=== PATIENT | female | born 1940 | race Caucasian/White ===

== ENCOUNTER 2019-04-04 11:43 | Inpatient (IN) ==
[2019-04-04] MEDS ORDERED: ASPIRIN PO ONE (12:00)
[2019-04-04] MEDS ORDERED: ASPIRIN PR ONE (12:00)
--- NOTE | 2019-04-04 12:14 | EKG Report ---
Test Performed on : 04/04/2019 11:54:31 AM Test Reason : SOB Blood Pressure : / mmHG Vent. Rate : 064 BPM Atrial Rate : 064 BPM P-R Int : 200 ms QRS Dur : 088 ms QT Int : 400 ms P-R-T Axes : 052 -03 026 degrees QTc Int : 412 ms Sinus rhythm. with occasional premature ventricular complexes. T wave abnormality, consider anterolateral ischemia Abnormal ECG When compared with ECG of 22-NOV-2014 16:04, premature ventricular complexes. are now present Minimal criteria for Anterior infarct are no longer present Nonspecific T wave abnormality now evident in Inferior leads T wave inversion now evident in Lateral leads Unconfirmed Result
[2019-04-04 12:18] LABS: BASO# 0.03 X1000 (0.0-0.2); BASO% 0.5 % (0.0-0.8); EOS# 0.13 X1000 (0.0-0.7); EOS% 2.1 % (0.0-10.0); HEMATOCRIT 42.9 % (37.0-47.0); HEMOGLOBIN 14.5 g/dL (12.0-16.0); LYMPH# 1.57 X1000 (1.2-3.4); LYMPH% 25.7 % (20.5-51.1); MCH 30.8 PG (27-31); MCHC 33.8 g/dL (33-37); MCV 91.1 FL (81-99); MONO# 0.55 X1000 (0.11-0.59); MPV 10.5 FL (7.4-10.4); NEUT# 3.83 X1000 (1.4-6.5); NEUT% 62.7 % (42.2-75.2); PLT 191 X1000 (130-400); RBC 4.71 XMIL (4.2-5.4); RDW 12.9 % (11.5-14.5); WBC 6.11 X1000 (4.8-10.8)
--- NOTE | 2019-04-04 12:20 | Diag Imaging Result Doc PS360 ---
EXAM: CHEST-2 VIEWS 04/04/2019 HISTORY: SOB TECHNIQUE: AP and lateral chest COMMENT: There is no evidence of acute cardiac or pulmonary disease. Compared to 01/22/2017 there has been no significant change. IMPRESSION: No acute disease. Electronically signed by Singh Lara 04/04/2019 12:18 PM
[2019-04-04 12:28] LABS: INR 0.94; PROTIME 12.7 Seconds (11.0-16.0); PTT 29.1 Seconds (22.3-41.8)
[2019-04-04 12:34] LABS: ALB/GLOB RATIO 1.5; ALBUMIN 4.2 g/dL (3.5-5.0); CALCIUM 9.9 mg/dL (8.8-10.2); POTASSIUM 4.1 mmol/L (3.5-5.1); TOTAL BILIRUBIN 0.9 mg/dL (0.20-1.00)
[2019-04-04 13:29] LABS: ALLEN TEST YES; BE 4.2 mmoll (-3.0-3.0); BLOOD TYPE ARTERIAL; HCO3-(ACT) 28.1 mmoll (20.0-26.0); METHB 1.2 % (0.0-1.5); O2(CT) 19.9 mL/dL (15.0-23.0); O2HB 93.3 % (95.0-99.0); PCO2(98.6) 44 mmHg (35-45); PO2(98.6) 68 mmHg (60-100); SAMPLE BLOOD; SAO2 95.8 % (95.0-100.0); THB 15.2 g/dL (11.5-17.4); pH(98.6) 7.43 (7.35-7.45)
[2019-04-04 13:31] LABS: MODALITY CANNULA
[2019-04-04] MEDS ORDERED: G.I. COCKTAIL PO ONE (15:35)
--- NOTE | 2019-04-04 15:37 | PROVIDER DOCUMENTATION ---
This chart was entered by Estefania Proctor Scribe, acting as scribe for Jasbir Londono MD. HPI-Respiratory General - General Chief Complaint: Shortness of Breath Stated Complaint: CHEST PAIN Time Seen by Provider: 04/04/19 12:14 Source: patient Allergies/Adverse Reactions: Patient Allergies Allergy/AdvReac Type Severity Reaction Status Date / Time cephalexin monohydrate * Allergy RASH Verified 04/04/19 14:04 [From Keflex] Iodinated Contrast Media Allergy SWELLING Verified 04/04/19 14:04 [IV Dye] nitrofurantoin Allergy RASH Verified 04/04/19 14:04 macrocrystalline * [From Macrodantin] nizatidine [From Axid] Allergy RASH Verified 04/04/19 14:04 Sulfa (Sulfonamide Allergy RASH Verified 04/04/19 14:04 Antibiotics) Home Medications: Home Medication List Medication Instructions Recorded Confirmed Last Taken Type Hydrochlorothiazide 25 mg PO DAILY 12/12/14 04/04/19 1 Day Ago History ~12/11/14 Potassium Chloride [Klor-Con 10] 10 meq PO DAILY 12/12/14 04/04/19 1 Day Ago History ~12/11/14 Diclofenac Na D.r. [Voltaren] 1 tab PO Q8H PRN 04/04/19 04/04/19 Unknown History Levothyroxine [Synthroid] 1 tab PO DAILY 04/04/19 04/04/19 Unknown History Metoprolol Succinate E.r. [Toprol 1 tab PO DAILY 04/04/19 04/04/19 Unknown History Xl] Pantoprazole [Protonix] 1 tab PO DAILY 04/04/19 04/04/19 Unknown History - History of Present Illness-Resp Nature of Presenting Problem: 78yof presents to ED cc SOB, low o2, dizziness and fatigue that is increased with movement for last 2-3 months swelling of hands and feet, HTN and abnormal EKG at PCP this morning. 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 Pt has hx of HTN. Pt o2 was 87% on room air in ED. Severity in ED: reports: moderate Onset/Duration: reports: other (2-3 months) Timing: reports: still present Exposure: reports: unknown cause Cough Quality/Degree: reports: no cough Current Respiratory Medication Therapy: Initiated see nurses note Modifying Factors: worse with: exertion Associated Symptoms: reports: shortness of breath, short of breath Similar Symptoms Previously?: Yes Recently seen or treated by another doctor?: Yes (saw PCP this morning) Review of Systems - Adult - REVIEW OF SYSTEMS - ADULT Constitutional: reports: see HPI, nanoque. denies: chills, fever Eyes: reports: no symptoms reported Ears, Nose, Mouth & Throat: reports: no symptoms reported Cardiovascular: reports: see HPI, other (elevated b/p). denies: chest pain, palpitations Respiratory: reports: see HPI, dyspnea on exertion, shortness of breath, other (low o2). denies: cough Gastrointestinal: reports: no symptoms reported Genitourinary: reports: no symptoms reported Musculoskeletal: reports: no symptoms reported Integumentary: reports: see HPI, other (swelling to hands and feet, bilateral) Neurological: reports: see HPI, dizziness/vertigo Psychiatric: reports: no symptoms reported Endocrine: reports: no symptoms reported Hematologic/Lymphatic: reports: no symptoms reported Allergic/Immunologic: reports: no symptoms reported All Other Systems: Reviewed and Negative Past History - Adult - PAST MEDICAL HISTORY-ADULT Review of Records: reports: Nursing Assessment Review, Medications Reviewed, Social history reviewed & non-contributory. Major Childhood Illnesses: reports: denies history Cardiovascular: reports: denies history Respiratory: reports: denies history Gastrointestinal: reports: denies history Obstetrical/Gynecological: reports: denies history Genitourinary: reports: denies history Musculoskeletal: reports: denies history Neurological: reports: denies history Endocrine/Immune: reports: denies history Other Conditions: reports: denies history - PRIOR SURGERIES/PROCEDURES Surgical/Procedure History: reports: appendectomy, cholecystectomy, hysterectomy , other (thyroid) - IMMUNIZATION STATUS Childhood Immunizations: See Nurse Assessment Flu Vaccine: See Nurse Assessment - FAMILY HISTORY Family History: reviewed, not pertinent - SOCIAL HISTORY Smoking: denies Physical Exam-General - PHYSICAL EXAM-ADULT Initial Vital Signs Reviewed: Yes - CONSTITUTIONAL General Appearance: appears well, alert, no apparent distress. negative: anxious, combative - EYES Eyes: PERRL/EOMI, pink conjunctivae. negative: photophobia - HEAD, EARS, NOSE, MOUTH & THROAT HENMT: normocephalic/atraumatic, moist mucous membranes. negative: angioedema - NECK Neck: non-tender, full range of motion, supple, normal inspection. negative: C- spine tenderness - RESPIRATORY Respiratory: chest non-tender, lungs clear, normal breath sounds, no pleuratic chest pain, no respiratory distress, no accessory muscle use. negative: crackles, rales, rhonchi, stridor, wheezing - CARDIOVASCULAR Cardiovascular: normal peripheral pulses, regular rate, rhythm, no edema, no gallop, no JVD, no murmur. negative: bradycardia, tachycardia - GASTROINTESTINAL (ABDOMEN) Abdominal Exam: normal bowel sounds, non tender, soft. negative: rigid, rebound - LYMPHATIC Lymphatic: no adenopathy - MUSCULOSKELETAL Back Exam: normal inspection, no CVA tenderness, no vertebral tenderness Extremity: normal range of motion, non-tender, normal gait, normal inspection, no calf tenderness, normal capillary refill, swelling (+1 bilateral lower). negative: deformity - SKIN Integumentary: normal color, normal turgor, warm/dry. 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 negative: facial droop - PSYCHIATRIC Psych/Mental Status: normal mood/affect, oriented x 3. negative: anxious, disheveled - HEART Score HEART Score: History: Slightly Suspicious HEART Score: ECG: Non-Specific Repolarization Disturbance/LBBB/PM HEART Score: Age: > or = 65 Years HEART Score: Risk Factors for Atherosclerotic Disease: 1 or 2 Risk Factors HEART Score: Troponin: < or = Normal Limit Total HEART Score:: 4 Progress - PLAN OF CARE/RESULTS Progress/Plan/Lab Results: Vital Signs - 8 hr 04/04/19 11:51 04/04/19 12:59 04/04/19 13:29 Temperature 97.7 F Pulse Rate 64 58 L Respiratory Rate 18 16 13 Blood Pressure 175/85 139/69 139/73 O2 Sat by Pulse Oximetry 87 L 95 95 04/04/19 14:07 Temperature Pulse Rate 58 L Respiratory Rate 19 Blood Pressure 147/80 O2 Sat by Pulse Oximetry 96 Laboratory Results - last 24 hr 04/04/19 04/04/19 04/04/19 12:06 12:06 12:06 WBC 6.11 RBC 4.71 Hgb 14.5 Hct 42.9 MCV 91.1 MCH 30.8 MCHC 33.8 RDW Std Deviation 12.9 Plt Count 191 MPV 10.5 H Neut % (Auto) 62.7 Lymph % (Auto) 25.7 [place] % (Auto) 9.0 Eos % (Auto) 2.1 Baso % (Auto) 0.5 Neut # (Auto) 3.83 Lymph # (Auto) 1.57 [place] # (Auto) 0.55 Eos # (Auto) 0.13 Baso # (Auto) 0.03 PT INR PTT (Actin FS) D-Dimer, Quantitative Specimen Type Sample Site pH pCO2 pO2 HCO3 Base Excess Oxyhemoglobin ABG O2 Sat (Calculated) ABG O2 Saturation ABG Carboxyhemoglobin ABG Methemoglobin Justin Test A-a O2 Difference Total Hemoglobin Lactate Liter Flow Blood Gas Modality FiO2 % Sodium 146 H Potassium 4.1 Chloride 104 Carbon Dioxide 29 Anion Gap 13 BUN 17 Creatinine 1.0 H Estimated GFR/1.73 m2 53 BUN/Creatinine Ratio 17 Glucose 102 Calculated Osmolality 292 Calcium 9.9 Total Bilirubin 0.90 AST 18 ALT 15 Alkaline Phosphatase 85 Creatine Kinase 123 Troponin T High Sens Tkc-O-Abdwyjhtvuv Pept 106 Total Protein 7.0 Albumin 4.2 Globulin 2.8 Albumin/Globulin Ratio 1.5 04/04/19 04/04/19 04/04/19 12:06 12:06 12:06 WBC RBC Hgb Hct MCV MCH MCHC RDW Std Deviation Plt Count MPV Neut % (Auto) Lymph % (Auto) [place] % (Auto) Eos % (Auto) Baso % (Auto) Neut # (Auto) Lymph # (Auto) [place] # (Auto) Eos # (Auto) Baso # (Auto) PT 12.7 INR 0.94 PTT (Actin FS) 29.1 D-Dimer, Quantitative 0.52 Specimen Type Sample Site pH pCO2 pO2 HCO3 Base Excess Oxyhemoglobin ABG O2 Sat (Calculated) ABG O2 Saturation ABG Carboxyhemoglobin ABG Methemoglobin Justin Test A-a O2 Difference Total Hemoglobin Lactate Liter Flow Blood Gas Modality FiO2 % Sodium Potassium Chloride Carbon Dioxide Anion Gap BUN Creatinine Estimated GFR/1.73 m2 BUN/Creatinine Ratio Glucose Calculated Osmolality Calcium Total Bilirubin AST ALT Alkaline Phosphatase Creatine Kinase Troponin T High Sens 10 Hen-C-Xztsawqchnh Pept Total Protein Albumin Globulin Albumin/Globulin Ratio 04/04/19 13:21 WBC RBC Hgb Hct MCV MCH MCHC RDW Std Deviation Plt Count MPV Neut % (Auto) Lymph % (Auto) [place] % (Auto) Eos % (Auto) Baso % (Auto) Neut # (Auto) Lymph # (Auto) [place] # (Auto) Eos # (Auto) Baso # (Auto) PT INR PTT (Actin FS) D-Dimer, Quantitative Specimen Type ARTERIAL Sample Site R RADIAL pH 7.43 pCO2 44 pO2 68 HCO3 28.1 H Base Excess 4.2 H Oxyhemoglobin 93.3 L ABG O2 Sat (Calculated) 19.9 ABG O2 Saturation 95.8 ABG Carboxyhemoglobin 1.40 ABG Methemoglobin 1.2 Justin Test YES A-a O2 Difference 77.0 Total Hemoglobin 15.2 Lactate 0.80 Liter Flow 2.0 Blood Gas Modality CANNULA FiO2 % 28.0 Sodium Potassium Chloride Carbon Dioxide Anion Gap BUN Creatinine Estimated GFR/1.73 m2 BUN/Creatinine Ratio Glucose Calculated Osmolality Calcium Total Bilirubin AST ALT Alkaline Phosphatase Creatine Kinase Troponin T High Sens Ivt-M-Ihmlszjwqlj Pept Total Protein Albumin Globulin Albumin/Globulin Ratio Orders Category Date Time Status Cardiac Monitoring DIRECTED Care 04/04/19 12:00 Active Oxygen Therapy- ED Nursing DIRECTED Care 04/04/19 12:00 Active Saline Loc NOW Care 04/04/19 12:00 Active CHEST-2 VIEWS [RAD] Stat Exams 04/04/19 12:00 Completed ABG [RESP] Routine Lab 04/04/19 13:21 Completed CBC WITH ELECTRONIC DIFF [HEME] Stat Lab 04/04/19 12:06 Completed CK PROFILE [SP CHEM] Stat Lab 04/04/19 12:06 Completed COMPREHENSIVE METABOLIC PANEL [CHEM] Stat Lab 04/04/19 12:06 Completed D-DIMER [COAG] Stat Lab 04/04/19 12:06 Completed PRO B-NATRIURETIC PEPTIDE Stat Lab 04/04/19 12:06 Completed PROTIME WITH INR [COAG] Stat Lab 04/04/19 12:06 Completed PTT [COAG] Stat Lab 04/04/19 12:06 Completed TROPONIN T HIGH SENSITIVITY Stat Lab 04/04/19 12:06 Completed Aspirin Med 04/04/19 12:00 Discontinued 300 mg MN NOW ONE Aspirin Med 04/04/19 12:00 Discontinued 325 mg PO NOW ONE Lido/Martinez Alk/Al&mg Hydrox [G.i. Cocktail] Med 04/04/19 15:35 Discontinued 30 ml PO NOW ONE CP/SOB/Palp >45 yrs of Age Stat Oth 04/04/19 12:00 Ordered EKG [EKG] Stat Ther 04/04/19 12:00 Draft Result Diagrams: 04/04/19 12:06 04/04/19 12:06 - EKG 1 Time of EKG reading by physician:: 11:54 EKG Read and Signed by:: Jasbir Londono EKG Interpretation (*Must complete 3 of following elements*): Abnormal (T wave abnormality, consider anterolateral ischemia) Rate: 64 Rhythm: Sinus Dubach: normal QRS: PVC's (occasional) - XRAY 1 XRAY: Bilateral XRAY Study: Chest Impression: See EMR Report (IMPRESSION: No acute disease. Electronically signed by Singh Lara 04/04/2019 12:18 PM) - CONSULTS/PCP/HOSPITALIST Notification #1 *Consult/PCP/Hospitalist*: Karen/[employer] paged @[phone];returned @[phone] Time Discussed: 15:29 Consult Disposition: Admit (accepted to Dr. Raya) Departure - Departure Date of Disposition Decision: 04/04/19 Time of Disposition Decision: 15:30 DIAGNOSIS: Exertional shortness of breath, GERD (gastroesophageal reflux disease), Hypoxia Disposition: ADMITTED INPATIENT 09 Certified Medical Emergency: Emergent Condition: Stable Additional Instructions: ED Follow Up Instructions: You have been treated by a care provider in the Emergency Department. These instructions are being provided to you so you can have an understanding of how to care for yourself upon discharge. Upon discharge from the Emergency Department, you are responsible for making arrangements for follow-up care by a physician of your choice. Take all prescribed medications as directed. Return to the Emergency Department immediately for any new or worsening symptoms. You may call the Physician Referral phone number at [phone] to obtain a list of Physicians who are taking new patients. Referrals and Follow-Ups: Selam Denney MD [Primary Care Provider] - - Critical Care Note This patient required my direct & personal management of CC.: No Attestation - Physician/ GIO Attestation Patient care was provided by Advanced Practice Provider:: No The physician spent face to face time with patient:: Yes Advanced Practice Provider documentation review:: Supervising physician onsite and consulted in the evaluation and care of this patient. The physician did have a face to face encounter with the patient. This chart was documented by the indicated scribe, (Estefania Proctor, Crystal) and accurately reflects the services I performed and decisions made by me, Jasbir Londono MD, as attested by the provider's signature.
[2019-04-04] MEDS ORDERED: TYLENOL PO PRN (17:08)
[2019-04-04] MEDS ORDERED: ZOFRAN IV PRN (17:08)
[2019-04-04] MEDS ORDERED: VOLTAREN PO PRN (17:08)
--- NOTE | 2019-04-04 17:14 | HISTORY AND PHYSICAL ---
PRIMARY CARE PHYSICIAN: Dr. Selam Denney. CHIEF COMPLAINT: Chest pain with a heaviness that radiates down her left arm and neck and shortness of breath with fatigue that is worse with movement. Also when she arrived, she had a room air saturation of 87%. HISTORY OF PRESENTING ILLNESS: This is an 78-year-old female who presents to [facility] with complaints of chest pain that she describes as a heaviness that radiates to her left arm and up her neck. States she has also had shortness of breath that is worse with movement, fatigue over the last 2 to 3 months. She has a room-air saturation today of 87% on arrival. States she has seen Cardiology and Pulmonology on outpatient basis with no significant findings. Her first troponin T high-sensitivity was 10. Again, her O2 saturation was 87% on room air. After placed on O2 at 2 L, came up to 95%. She is allergic to iodinated contrast media so we were unable to do a pulmonary arteriogram. So, she will be admitted for further evaluation and treatment. We will do a V/Q scan in the a.m. PAST MEDICAL HISTORY: Hypertension, GERD, bladder cystitis, hypothyroidism, and IBS. PAST SURGICAL HISTORY: Appendectomy, cholecystectomy, hysterectomy, and a thyroidectomy. FAMILY HISTORY: Reviewed and noncontributory. SOCIAL HISTORY: She currently lives with family. Denies any tobacco, alcohol, or illicit drug use. ALLERGIES: Keflex, iodinated contrast media, Macrodantin, Axid, and sulfa drugs. HOME MEDICATIONS: She takes Voltaren 50 mg 1 tablet p.o. q.8 hours p.r.n., hydrochlorothiazide 25 mg p.o. daily, levothyroxine 150 mcg p.o. daily, metoprolol 25 mg p.o. daily, pantoprazole 40 mg p.o. daily, potassium 10 mEq p.o. daily. LABORATORY DATA: Showed a white blood cell count of 6.11, hemoglobin 14.5, hematocrit 42.9, platelets 191,000. PT and INR of 12.7 and 0.94. D-dimer 0.52. ABG with a pH of 7.43, pCO2 of 44, PO2 68, bicarb 28.1, and this was on 2 L via nasal cannula. Sodium 146, potassium 4.1, chloride 104, CO2 29, BUN of 17, creatinine 1, glucose 102. Troponin T high- sensitivity of 10. ProBNP of 106. Chest x-ray showed no acute disease. EKG showed sinus rhythm with occasional PVCs at 64. REVIEW OF SYSTEMS: She denied any fever, chills, blurred vision, dizziness. She was positive for chest pain that radiated to her left arm and neck, shortness of breath, fatigue. Denied any abdominal pain, constipation, diarrhea, burning or hurting with urination. PHYSICAL EXAMINATION: VITAL SIGNS: On arrival she had a temperature of 97.7 degrees, pulse 64, respirations 18, blood pressure 175/85, saturating 87% on room air. O2 saturation is now up to 96% on 2 L. GENERAL: This is an 78-year-old female, lying in the bed and answers questions appropriately. HENT: Normocephalic, atraumatic. Normal ENT inspection. Oropharynx and nares are clear. EYES: Pupils are equal, round, reactive to light and accommodation. Extraocular movements are intact. NECK: Normal inspection. Normal range of motion. LUNGS: Clear to auscultation bilaterally with equal lung expansion and chest wall movement. HEART: With regular rate and rhythm. No murmurs, rubs, or gallops. ABDOMEN: Soft, nontender, nondistended. Bowel sounds are present x4 quadrants. MUSCULOSKELETAL: She had 5/5 strength x4 extremities. NEUROLOGICAL: The cranial nerves 2-12 appear grossly intact. ASSESSMENT: 1. Chest pain. 2. Acute respiratory failure with hypoxemia. 3. Hypertension. 4. Gastroesophageal reflux disease. PLAN: She will be admitted to the medical unit. Placed on telemetry. We will check a CK profile and troponin now for her 2nd set. We will plan to do a lung V/Q scan in the a.m. Continue home medications, healthy heart diet, O2 per protocol. Recheck a CBC and BMP in the a.m. Further orders after seen by attending. Dictated by CINDA Ledbetter for Radha Chavarria MD cc: CINDA Ledbetter MD Lindsay E. Smith, MD I performed a face to face encounter on the patient. I reviewed all labs and imaging on the patient. I agree with the H&P as dictated. [facility]
[2019-04-04] MEDS: LOVENOX SUBQ SCH (17:39)
[2019-04-05] MEDS: SYNTHROID PO SCH (06:25)
[2019-04-05] MEDS: PROTONIX PO SCH (06:25)
[2019-04-05 07:32] LABS: HEMOGLOBIN 13.9 g/dL (12.0-16.0); MCH 30.5 PG (27-31); MCHC 33.1 g/dL (33-37); MCV 92.3 FL (81-99); MPV 10.5 FL (7.4-10.4); RBC 4.55 XMIL (4.2-5.4); WBC 5.13 X1000 (4.8-10.8)
[2019-04-05 07:46] LABS: CALCIUM 9.5 mg/dL (8.8-10.2); POTASSIUM 3.7 mmol/L (3.5-5.1)
[2019-04-05 07:57] LABS: CHOLESTEROL 238 mg/dL (0-200); CK PROFILE 102 U/L (24-173); HDL 39 mg/dL (45-65); LDL 145 mg/dL; TRIGLYCERIDES 270 mg/dL (35-135); VLDL 54 mg/dL
[2019-04-05] MEDS: KLOR-CON PO SCH (09:18)
[2019-04-05] MEDS: TOPROL XL PO SCH (09:18)
[2019-04-05] MEDS: ASPIRIN PO SCH (09:18)
--- NOTE | 2019-04-05 11:13 | Diag Imaging Result Doc PS360 ---
LUNG SCAN / VQ - 04/05/2019 INDICATION: ? hypoxia with clear chest xray TECHNIQUE: 42.4 mCi of DTPA was used for inhalation. 5.8 mCi of MAA was used for injection. COMPARISON: Chest rate from 04/04/2019 FINDINGS: There is normal localization pattern of the radiotracer's. There is no pulmonary perfusion defect. IMPRESSION: Negative for pulmonary embolism. Electronically signed by Rob Del Castillo 04/05/2019 11:10 AM
[2019-04-05] MEDS: HYDROCHLOROTHIAZIDE PO SCH (13:14)
--- NOTE | 2019-04-05 14:50 | Diag Imaging Result Doc PS360 ---
EXAM: CT THORAX W/O CONTRAST HISTORY: dyspnea, hypoxia. VQ scan and CXR negative. TECHNIQUE: CT chest without intravenous contrast COMPARISON: None. FINDINGS: No pleural effusions. No cardiomegaly. No aortic aneurysm. There are multiple calcified mediastinal and left hilar lymph nodes with scattered granuloma. There are small noncalcified mediastinal nodes. Minimal interstitial markings believed to be fibrosis. No consolidation. No bronchiectasis. IMPRESSION: 1.There is evidence of a prior granulomatous infection 2.Minimal interstitial markings believed to be fibrosis This exam was performed using automated exposure control, adjustment of mA or kV according to patient size, and/or use of iterative reconstruction technique. Electronically signed by Bart Maier 04/05/2019 2:48 PM
[2019-04-05] MEDS: ANTIVERT PO SCH (16:37)
[2019-04-05] MEDS: LOVENOX SUBQ SCH (16:37)
--- NOTE | 2019-04-05 17:15 | PROGRESS NOTE ---
DATE: 04/05/2019 INTERVAL HISTORY: The patient still with intermittent vertigo and poor exercise tolerance. By her report, these have been going on for quite a while, but have been worse recently, especially the dyspnea on exertion, so she came here. She gives a pretty good description of positional vertigo, which is likely BPPV. No history of smoking, so COPD is relatively unlikely, but does have some possible occupational exposures. 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 Pretty asymptomatic at rest. Currently, no new complaints. REVIEW OF SYSTEMS: A 12-point review of systems is negative except as per interval history. LABS: WBC 5.1, hemoglobin 13.9, hematocrit 42, platelets 180,000. Sodium 141, potassium 3.7, BUN 22, creatinine 1, glucose 103. Troponin negative x3. HDL 39, LDL 145. IMAGING STUDIES: V/Q scan negative. CT chest with no acute findings, but does show evidence of prior granulomatous infection and mild interstitial markings favored to be fibrosis. VITAL SIGNS: T-max 98.5 degrees, pulse 66, respirations 20, blood pressure 114/63, and O2 saturation 93% on 3 L by nasal cannula. PHYSICAL EXAMINATION: General: No acute distress. Vital Signs: As above. HEENT: Normocephalic, atraumatic. Moist mucous membranes. No cervical adenopathy. Cardiovascular: Regular rate and rhythm. No murmurs noted. Pulmonary: Really essentially clear to auscultation bilaterally. No wheezing noted. No Velcro type crackles or other rales. Abdomen: Soft, nontender, nondistended. Bowel sounds positive. Extremities: Peripheral pulses intact. No clubbing or cyanosis. Neurologic: Cranial nerves grossly intact. No focal deficits. Psychiatric: Awake, alert, oriented x3. ASSESSMENT AND PLAN: 1. Vertigo. The patient gives a pretty classic description of benign paroxysmal positional vertigo. We will place on meclizine and recommend outpatient evaluation by ENT. 2. Chest pain, now resolved. Troponins negative x3. EKG largely unremarkable. No evidence for myocardial infarction at this time. 3. Hypoxic respiratory failure, uncertain of chronicity. Patient does state that any time she goes to new doctor they remark on her oxygen being somewhat low. She has never been on oxygen in the past. I am really not sure how much of this is chronic versus acute. She does continue to require oxygen, however. There was concern for pulmonary embolism, but V/Q scan returned negative. CT chest was obtained to evaluate for occult pneumonia or other pathology. It showed some mild fibrosis, but nothing else significant. 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 Apparently, there were some fumes involved with that so may have chronic hypoxia related to that. Monitor for now. Suspect we will have to set her up with home oxygen. 4. Dyspnea on exertion. The patient states it has been going on for at least 3 years, but worse recently. May be related to chronic poorly defined lung disease, but some concern for cardiac etiology. Not an myocardial infarction as her troponins are negative, but we will get echocardiogram, and if that shows anything, then we will likely need to get Cardiology involved. Patient may need stress test, but cannot have it today because she has already had a V/Q scan. We will see what the echocardiogram shows and go from there. 5. Gastroesophageal reflux disease. Continue proton pump inhibitor. 6. Hypothyroidism. Continue Synthroid. 7. Hypertension. Continue home hydrochlorothiazide.
[2019-04-06] MEDS: SYNTHROID PO SCH (06:27)
[2019-04-06] MEDS: PROTONIX PO SCH (06:27)
--- NOTE | 2019-04-06 08:32 | ECHO REPORT ---
ORDER DATE: 04/05/2019 INTERPRETING PHYSICIAN: Toan Pantoja MD REQUESTING PHYSICIAN: Dick York MD INDICATION: Dyspnea. M-MODE MEASUREMENTS: Left ventricle end diastole: 5.3 cm. Left ventricle end systole: 3.1 cm. Posterior wall: 1.0 cm. Interventricular septum: 1.0 cm. Left atrium: 3.4 cm. Aortic diameter: 3.2 cm. SUMMARY OF 2-DIMENSIONAL IMAGIN. Left ventricular function is normal. The ejection fraction is estimated at 70%. Optison was added to optimize visualization of the endocardium. 2. The aortic valve shows sclerosis of the cusp without stenosis. 3. The mitral valve opens normally. Color flow mapping is unremarkable. 4. Pulse wave Doppler of mitral inflow shows reversal of the E and the A ratio. Ratio is 0.6. 5. Tissue Doppler of septal and lateral mitral annulus averages 5 cm. 6. There is impaired left ventricular relaxation. 7. The tricuspid valve shows a minimal degree of regurgitation. 8. Pulmonary pressure is estimated at 27 to 32 mmHg. 9. The pulmonic valve is unremarkable with a very mild degree of regurgitation. 10.There is no pericardial effusion and no sign of thrombus. 11.The right side of the heart does not appear to be enlarged. 12.The left atrium is not particularly dilated. Clinical correlation is recommended. cc: Toan Pantoja MD
[2019-04-06] MEDS: ASPIRIN PO SCH (09:35)
[2019-04-06] MEDS: KLOR-CON PO SCH (09:35)
[2019-04-06] MEDS: ANTIVERT PO SCH ×3 (09:35→18:02)
[2019-04-06] MEDS: TOPROL XL PO SCH (09:35)
[2019-04-06] MEDS: HYDROCHLOROTHIAZIDE PO SCH (09:36)
[2019-04-06] MEDS ORDERED: TUMS PO PRN (12:42)
[2019-04-06 14:43] VITALS: BP 123/65
--- NOTE | 2019-04-06 16:40 | DISCHARGE SUMMARY ---
ADMISSION DATE: 04/04/2019 DISCHARGE DATE: 04/06/2019 PERTINENT STUDIES: V/Q scan negative for PE. CT chest with prior evidence of prior granulomatous infection and interstitial markings favored to represent fibrosis. Chest x-ray with no acute disease. Echocardiogram with normal EF. No significant valvular abnormalities. Mildly elevated pulmonary pressure at 27 to 32. No pericardial effusion. No other significant abnormality. DISCHARGE DIAGNOSES: 1. Chronic hypoxic respiratory failure. 2. Pulmonary fibrosis. 3. Likely sleep apnea. 4. Mild pulmonary hypertension. 5. Exercise intolerance. 6. Obesity. 7. Vertigo. 8. Gastroesophageal reflux disease. 9. Hypothyroidism. 10. Hypertension. 11. Benign positional paroxysmal vertigo. HOSPITAL COURSE: The patient presented initially complaining of dyspnea which was slowly progressive over the last 3 years with some acceleration over the last 2 to 3 months. She was mildly hypoxic on arrival. She had extensive workup. Troponins were negative. BNP was within normal limits. Echocardiogram was obtained which was essentially unremarkable aside from very mild pulmonary hypertension. V/Q scan was obtained to assess for pulmonary embolism, which was negative as well. Chest CT was obtained to look for occult pneumonia or other acute lung finding, but showed only increased interstitial markings favored to represent fibrosis with no acute finding. The patient had had a relatively recent cardiac stress test within the last few months, which was unremarkable and also showed normal EF. 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 She states after that hoods were installed, but she had been exposed for many years with no form of respiratory protection. I suspect the patient has interstitial fibrosis related to that inhalation over years likely. She had no wheezing. No history of smoke exposure to suggest COPD. Mildly low oxygen remained consistent throughout her hospitalization, and on the day of discharge, she desaturated down to 88% with ambulation on room air. Her did state that she snores significantly and she may have an aspect of sleep apnea, but that would not have an impact on her awake ambulatory O2 saturations, so it was thought that this represents chronic hypoxic respiratory failure related to pulmonary fibrosis and previous inhalation injury. She was set up with home oxygen and discharged home to follow up with PCP and pulmonology. The patient did also endorse some positional vertigo. She had positive Yumiko- Hallpike maneuver and some mild left beating nystagmus. This was improved, but not entirely relieved with meclizine. I strongly suspect BPPV in addition to her chronic respiratory issues. DISCHARGE VITAL SIGNS: Temperature 97.6 degrees, pulse 79, respiratory rate 18, blood pressure 123/65, and O2 saturation 96% on 3 L by nasal cannula. DISCHARGE DIET: Regular. DISCHARGE MEDICATIONS: Hydrochlorothiazide 25 mg p.o. daily, Protonix 40 mg p.o. daily, Synthroid 150 mcg p.o. daily, Voltaren every 8 hours as needed, meclizine 25 mg p.o. t.i.d.. FOLLOWUP AND PLAN: The patient is discharged home to follow up with PCP, ENT, and Pulmonology. Recommend outpatient sleep study. TIME SPENT: Greater than 30 minutes spent arranging discharge and counseling the patient. RAIZA
[2019-04-06] MEDS: LOVENOX SUBQ SCH (16:53)
== END 2019-04-06 18:12 | disposition home or self-care (01) | DRG 313 ==
LOC: ED 11:43 → EDIPHOLD 16:05 → SUATTDRO 16:05 → 3N 20:11
PROVIDERS: ATTEND Internal Medicine